=== PATIENT | female | born 1970 | race Caucasian/White ===

== ENCOUNTER 2020-10-11 13:57 | Day surgery (SDC) | payer MEDICARE ==
[2020-10-11] MEDS ORDERED: Sodium Chloride 0.9(Preservative Free) 10 ML IJ ONE (13:58)
[2020-10-11] MEDS ORDERED: Decadron 4 MG INJ IV ONE (13:58)
[2020-10-11] MEDS ORDERED: Xylocaine 1% Vial 30 ML PF IJ ONE (13:58)
[2020-10-11] MEDS ORDERED: Lactated Ringers 1,000 ML IV ONE (16:35)
--- NOTE | 2020-10-11 16:36 | XRAY ---
Indication: Cervical JOYCE. Intraoperative fluoroscopy provided for 36 seconds. 3 digital spot image submitted for interpretation demonstrates midline posterior needle tip projecting just posterior to the cervical thoracic junction. Small amount of contrast injected for needle tip placement. Correlate with intraoperative findings/report.
--- NOTE | 2020-10-11 16:40 | XRAY ---
36 seconds fluoroscopy time in surgery for cervical JOYCE.
== END 2020-10-11 16:12 | disposition home or self-care (01) ==
LOC: SDC-PAIN 13:57
PROVIDERS: ATTEND Psychiatry & Neurology Pain Medicine
DX: M54.12 Radiculopathy, cervical region (principal); G35 Multiple sclerosis; M79.7 Fibromyalgia; G47.419 Narcolepsy without cataplexy; J45.909 Unspecified asthma, uncomplicated; F43.21 Adjustment disorder with depressed mood; Z79.899 Other long term (current) drug therapy
CPT/HCPCS: 62321; 72040; 77003; J1100; J2001; Q9966

== ENCOUNTER 2021-01-03 13:22 | Day surgery (SDC) | payer MEDICARE ==
[2021-01-03] MEDS ORDERED: LIDOCAINE HCL 2% 100 MG/5 ML IJ ONE (13:23)
[2021-01-03] MEDS ORDERED: DIPRIVAN 200 MG/20 ML IV ONE (15:46)
[2021-01-03] MEDS ORDERED: Lactated Ringers 1,000 ML IV ONE (17:33)
--- NOTE | 2021-01-04 08:01 | XRAY ---
19 seconds fluoroscopy time in surgery for bilateral L4-S1 MBB.
== END 2021-01-03 16:04 | disposition home or self-care (01) ==
LOC: SDC-PAIN 13:22
PROVIDERS: ATTEND Psychiatry & Neurology Pain Medicine
DX: M47.816 Spondylosis without myelopathy or radiculopathy, lumbar region (principal); G35 Multiple sclerosis; Z79.899 Other long term (current) drug therapy
CPT/HCPCS: 64493; 64494; 72020; 77002; J2704

== ENCOUNTER 2021-02-14 08:10 | Day surgery (SDC) | payer MEDICARE ==
[2021-02-14] MEDS ORDERED: BUPIVACAINE 0.5% VIAL IJ ONE (08:11)
[2021-02-14] MEDS ORDERED: DIPRIVAN 200 MG/20 ML IV ONE (09:04)
[2021-02-14] MEDS ORDERED: Ketamine HCl 50 MG/ML ONE (09:04)
[2021-02-14] MEDS ORDERED: Lactated Ringers 1,000 ML IV ONE (09:45)
--- NOTE | 2021-02-14 11:35 | XRAY ---
Indication: Bilateral L4-S1 MBB. Intraoperative fluoroscopy provided for 10 seconds. Single digital spot image submitted for interpretation demonstrates posterior needle tips projecting over the expected left and right L4-S1 nerve roots. Correlate with intraoperative findings/report.
--- NOTE | 2021-02-14 11:42 | XRAY ---
10 seconds fluoroscopy time in surgery for bilateral L4-S1 MBB.
== END 2021-02-14 09:48 | disposition home or self-care (01) ==
LOC: SDC-PAIN 08:10
PROVIDERS: ATTEND Psychiatry & Neurology Pain Medicine
DX: M47.816 Spondylosis without myelopathy or radiculopathy, lumbar region (principal); Z79.899 Other long term (current) drug therapy
CPT/HCPCS: 64493; 64494; 72020; 77002; J2704

== ENCOUNTER 2021-04-18 13:12 | Day surgery (SDC) | payer MEDICARE ==
[2021-04-18] MEDS ORDERED: BUPIVACAINE 0.5% VIAL IJ ONE (13:13)
[2021-04-18] MEDS ORDERED: Xylocaine 1% Vial 30 ML PF IJ ONE (13:13)
[2021-04-18] MEDS ORDERED: Depo-Medrol 40 MG/ML IM ONE (13:13)
[2021-04-18] MEDS ORDERED: DIPRIVAN 200 MG/20 ML IV ONE ×2 (14:35→14:51)
--- NOTE | 2021-04-18 15:19 | XRAY ---
Indication: Left L4-S1 RFA. Intraoperative fluoroscopy provided for 32 seconds. 3 digital spot images submitted for interpretation demonstrates posterior needle tips projecting over the expected left L4-S1 nerve roots. Correlate with intraoperative findings/report.
--- NOTE | 2021-04-18 15:40 | XRAY ---
32 seconds fluoroscopy time in surgery for left L4-S1 RFA.
[2021-04-18] MEDS ORDERED: Lactated Ringers 1,000 ML IV ONE (17:28)
== END 2021-04-18 15:05 | disposition home or self-care (01) ==
LOC: SDC-PAIN 13:12
PROVIDERS: ATTEND Psychiatry & Neurology Pain Medicine
DX: M47.816 Spondylosis without myelopathy or radiculopathy, lumbar region (principal); G35 Multiple sclerosis; M79.7 Fibromyalgia; G47.419 Narcolepsy without cataplexy; J45.909 Unspecified asthma, uncomplicated; F41.9 Anxiety disorder, unspecified; Z79.899 Other long term (current) drug therapy
CPT/HCPCS: 64635; 64636; 72100; 77002; J1030; J2001; J2704

== ENCOUNTER 2021-04-25 13:25 | Day surgery (SDC) | payer MEDICARE ==
[2021-04-25] MEDS ORDERED: Xylocaine 1% Vial 30 ML PF IJ ONE (13:26)
[2021-04-25] MEDS ORDERED: BUPIVACAINE 0.5% VIAL IJ ONE (13:26)
[2021-04-25] MEDS ORDERED: Depo-Medrol 40 MG/ML IM ONE (13:26)
[2021-04-25] MEDS ORDERED: DIPRIVAN 200 MG/20 ML IV ONE (15:02)
[2021-04-25] MEDS ORDERED: Ketamine HCl 50 MG/ML ONE (15:04)
[2021-04-25] MEDS ORDERED: Lactated Ringers 1,000 ML IV ONE (15:48)
--- NOTE | 2021-04-25 19:53 | XRAY ---
Indication: Right L4-S1 RFA. Intraoperative fluoroscopy provided for 30 seconds. 4 digital spot image submitted for interpretation demonstrates posterior needle tips projecting over the expected right L4-S1 nerve roots. Correlate with intraoperative findings/report.
--- NOTE | 2021-04-26 08:57 | XRAY ---
30 seconds fluoroscopy time in surgery for right L4-S1 RFA.
== END 2021-04-25 15:35 | disposition home or self-care (01) ==
LOC: SDC-PAIN 13:25
PROVIDERS: ATTEND Psychiatry & Neurology Pain Medicine
DX: M47.816 Spondylosis without myelopathy or radiculopathy, lumbar region (principal); Z79.899 Other long term (current) drug therapy
CPT/HCPCS: 64635; 64636; 72100; 77002; J1030; J2001; J2704

== ENCOUNTER 2022-01-23 10:59 | Day surgery (SDC) | payer MEDICARE ==
[2022-01-23] MEDS ORDERED: Marcaine Mpf 0.5% Vial 30 Ml IJ ONE (11:00)
[2022-01-23] MEDS ORDERED: Depo-Medrol 40 MG/ML IM ONE (11:00)
[2022-01-23] MEDS ORDERED: DIPRIVAN 200 MG/20 ML IV ONE (11:59)
[2022-01-23] MEDS ORDERED: Lactated Ringers 1,000 ML IV ONE (12:27)
--- NOTE | 2022-01-23 14:02 | XRAY ---
Indication: Left knee injection. Intraoperative fluoroscopy provided for 11 seconds. Single digital spot image submitted for interpretation needle tip projecting over the left femur intercondylar notch. Small amount of contrast injected for needle tip placement. Correlate with intraoperative findings/report.
--- NOTE | 2022-01-23 14:04 | XRAY ---
11 seconds fluoroscopy time in surgery for intra-articular injection of the left knee.
== END 2022-01-23 12:23 | disposition home or self-care (01) ==
LOC: SDC-PAIN 10:59
PROVIDERS: ATTEND Psychiatry & Neurology Pain Medicine
DX: M17.12 Unilateral primary osteoarthritis, left knee (principal); Z79.899 Other long term (current) drug therapy
CPT/HCPCS: 20610; 73560; 77002; J1030; J2704; Q9966